=== PATIENT | female | born 1975 | race Caucasian/White ===

== ENCOUNTER → 2016-09-17 | Outpatient (CLI) | payer OTHER ==
[~2016-09-17] MED LIST: ASPIR 8181 MG PO; CARTIA XT120 MG PO; COZAAR25 MG PO; HYDROCHLOROTHIA25 MG PO; IMDUR ER TAB 3030 MG PO; KLOR-CON M2020 MEQ PO; LEVOTHYROXINE50 MCG PO; METFORMIN HCL1000 M1 PO; NEXIUM40 MG PO; NITROSTAT 0.40.4 MG SL
== END ==
LOC: NM 08:54
DX: R10.13 Epigastric pain (principal); K21.9 Gastro-esophageal reflux disease without esophagitis
CPT/HCPCS: 36415; 78264; 82150; 83690; A9541